=== PATIENT | female | born 1935 | race Caucasian/White ===

== ENCOUNTER 2018-04-23 09:50 | Inpatient (IN) | payer MEDICARE, OTHER ==
[~2018-04-23] VITALS: Ht 162.6 cm; Wt 63.6 kg
[~2018-04-23 09:50] MED LIST: CARV3.122 PO; LISI2.5T2 PO; LORA1TAB PO; MELA3TAB PO; MULT1TAB74 PO; NITR0.4T51 SL; OMEG1CAP54 PO; SYN0.025T PO; TRAM50TA2 PO
[2018-04-23] MEDS ORDERED: aspirin 81mg tab.chew PO ONE (10:00)
[2018-04-23 10:27] LABS: BASOPHILS % (AUTO) 0.7 % (0-1); EOSINOPHILS # (AUTO) 0.1 X10'3 (0-0.9); EOSINOPHILS % (AUTO) 1.2 % (0-6); HEMATOCRIT 30.2 % (35.0-45.0); LYMPHOCYTES # (AUTO) 0.9 X10'3 (1.1-4.8); LYMPHOCYTES % (AUTO) 14.6 % (21-51); MEAN CORPUSCULAR HEMOGLOBIN 30.8 PG (27.0-31.0); MEAN CORPUSCULAR HGB CONC 33.2 % (33.0-36.5); MEAN CORPUSCULAR VOLUME 92.6 FL (78-98); MEAN PLATELET VOLUME 6.8 FL (7.4-10.4); MONOCYTES # (AUTO) 0.5 X10'3 (0-0.9); MONOCYTES % (AUTO) 8.4 % (2-12); NEUTROPHILS # (AUTO) 4.4 X10'3 (1.8-7.7); NEUTROPHILS % (AUTO) 75.1 % (42-75); PLATELET COUNT 415 X10'3 (140-440); RED BLOOD COUNT 3.26 X10'6 (4.20-5.60); RED CELL DISTRIBUTION WIDTH 14.8 % (11.5-14.5); WHITE BLOOD COUNT 5.9 X10'3 (4.5-11.0)
[2018-04-23 10:45] LABS: ALANINE AMINOTRANSFERASE 31 U/L (12-78); ALBUMIN 3.4 G/DL (3.4-5.0); ALKALINE PHOSPHATASE 91 IU/L (46-116); ANION GAP 5 (8-16); ASPARTATE AMINO TRANSFERASE 19 U/L (10-37); BILIRUBIN,TOTAL 0.5 MG/DL (0.1-1.0); BLOOD UREA NITROGEN 12 MG/DL (7-18); BUN/CREATININE RATIO 14.6 (6.6-38.0); CALCIUM 9.4 MG/DL (8.5-10.1); CHLORIDE 102 MMOL/L (99-107); CREATININE 0.82 MG/DL (0.40-0.90); GLUCOSE 112 MG/DL (70-104); POTASSIUM 4.6 MMOL/L (3.5-5.1); SODIUM 136 MMOL/L (135-145); TOTAL PROTEIN 6.8 G/DL (6.4-8.2); eGFR 67 ML/MIN
[2018-04-23 10:51] LABS: MAGNESIUM 2.2 MG/DL (1.5-2.4)
[2018-04-23 10:52] LABS: INR 1.1 INR; PARTIAL THROMBOPLASTIN TIME 31 SECONDS (22-32); PROTHROMBIN TIME 11.1 SECONDS (9.0-12.0)
[2018-04-23] MEDS ORDERED: furosemide 10 MG/1 ML 10ml inj IV ONE (11:15)
[2018-04-23] MEDS ORDERED: levoFLOXACIN-Levaquin 750MG/D5 150 ML IV ONE (11:15)
[2018-04-23] MEDS ORDERED: LORA1TAB PO (11:30)
[2018-04-23] MEDS ORDERED: LEVO75TA7 PO (11:30)
[2018-04-23] MEDS ORDERED: LISI-604 PO (11:30)
[2018-04-23] MEDS ORDERED: CARV-50 PO (11:30)
[2018-04-23] MEDS ORDERED: magnesium hydroxide 30ml (MOM) UD suspension PO PRN (12:50)
[2018-04-23] MEDS ORDERED: mag hydrox/Alum hydrox/simeth 30ml oral suspension PO PRN (12:50)
[2018-04-23] MEDS ORDERED: acetaminophen 325mg tablet PO PRN ×2 (12:50)
[2018-04-23] MEDS ORDERED: ondansetron/PF 4mg/2ml inj IV PRN (12:50)
[2018-04-23] MEDS ORDERED: magnesium 4gm in 100ml NS 100 ML IV PRN (12:50)
[2018-04-23] MEDS ORDERED: potassium Cl 40MEQ/NS 500ml 500 ML IV PRN ×2 (12:50)
[2018-04-23] MEDS ORDERED: magnesium Cl slow-release 64mg tablet PO PRN (12:50)
[2018-04-23] MEDS ORDERED: potassium Cl 20 mEq SR tablet PO PRN ×2 (12:50)
[2018-04-23] MEDS: HYDROcodone/acetaminophen 5mg/325mg tablet PO PRN ×2 (15:02→20:25)
[2018-04-23] MEDS ORDERED: nitroGLYCERIN 0.4mg SUBLingual tab SL PRN (15:20)
[2018-04-23] MEDS ORDERED: traMADol 50MG tablet PO PRN (15:20)
[2018-04-23] MEDS: furosemide 40mg/4ml inj IV SCH (20:24)
[2018-04-23] MEDS: carvedilol 6.25mg tablet PO SCH (20:24)
[2018-04-23 21:00] VITALS: BP 128/79
[2018-04-23] MEDS ORDERED: LORazepam 1 MG tablet PO SCH (21:00)
[2018-04-24 03:00] VITALS: BP 103/54
[2018-04-24 06:15] LABS: ALBUMIN 2.8 G/DL (3.4-5.0); ANION GAP 10 (8-16); BLOOD UREA NITROGEN 15 MG/DL (7-18); BUN/CREATININE RATIO 17.4 (6.6-38.0); CALCIUM 8.8 MG/DL (8.5-10.1); CHLORIDE 103 MMOL/L (99-107); CREATININE 0.86 MG/DL (0.40-0.90); GLUCOSE 89 MG/DL (70-104); POTASSIUM 3.5 MMOL/L (3.5-5.1); SODIUM 140 MMOL/L (135-145); TOTAL CARBON DIOXIDE 27.3 MMOL/L (24-32); eGFR 63 ML/MIN
[2018-04-24 06:22] LABS: BASOPHILS % (AUTO) 0.9 % (0-1); EOSINOPHILS # (AUTO) 0.1 X10'3 (0-0.9); EOSINOPHILS % (AUTO) 1.8 % (0-6); HEMATOCRIT 28.2 % (35.0-45.0); HEMOGLOBIN 9.5 g/dl (12.0-16.0); LYMPHOCYTES # (AUTO) 1.2 X10'3 (1.1-4.8); LYMPHOCYTES % (AUTO) 26.7 % (21-51); MEAN CORPUSCULAR HGB CONC 33.7 % (33.0-36.5); MEAN CORPUSCULAR VOLUME 91.9 FL (78-98); MEAN PLATELET VOLUME 7.2 FL (7.4-10.4); MONOCYTES # (AUTO) 0.7 X10'3 (0-0.9); MONOCYTES % (AUTO) 15.6 % (2-12); NEUTROPHILS # (AUTO) 2.4 X10'3 (1.8-7.7); PLATELET COUNT 347 X10'3 (140-440); RED BLOOD COUNT 3.07 X10'6 (4.20-5.60); RED CELL DISTRIBUTION WIDTH 14.4 % (11.5-14.5); WHITE BLOOD COUNT 4.4 X10'3 (4.5-11.0)
[2018-04-24 07:00] VITALS: BP 103/58
[2018-04-24] MEDS ORDERED: K and/or MAG REPLACEMENT MC SCH (08:00)
[2018-04-24] MEDS ORDERED: enoxaparin 40mg/0.4ml syringe SQ SCH (08:00)
[2018-04-24] MEDS ORDERED: lisinopril 5mg tablet PO SCH (08:00)
[2018-04-24] MEDS ORDERED: levoTHYROXINE 75mcg tablet PO SCH (08:00)
[2018-04-24] MEDS: carvedilol 6.25mg tablet PO SCH (08:19)
[2018-04-24] MEDS: furosemide 40mg/4ml inj IV SCH (09:25)
[2018-04-24] MEDS ORDERED: FURO20TA4 PO (09:53)
== END 2018-04-24 10:55 | disposition home health service (06) | DRG 291 ==
LOC: ER 09:51 → ED HOLD 12:46 → MED 3N 21:01
PROVIDERS: ADMIT Hospitalist; ATTEND Family Medicine
DX: I50.43 Acute on chronic combined systolic (congestive) and diastolic (congestive) heart failure (principal); J96.01 Acute respiratory failure with hypoxia; I42.9 Cardiomyopathy, unspecified; J44.1 Chronic obstructive pulmonary disease with (acute) exacerbation; D64.9 Anemia, unspecified; E03.9 Hypothyroidism, unspecified; I25.10 Atherosclerotic heart disease of native coronary artery without angina pectoris; M17.0 Bilateral primary osteoarthritis of knee; R19.7 Diarrhea, unspecified; I25.2 Old myocardial infarction; Z90.49 Acquired absence of other specified parts of digestive tract; Z95.1 Presence of aortocoronary bypass graft; Z95.810 Presence of automatic (implantable) cardiac defibrillator; Z79.890 Hormone replacement therapy; Z79.899 Other long term (current) drug therapy; Z82.5 Family history of asthma and other chronic lower respiratory diseases; Z82.3 Family history of stroke; Z82.41 Family history of sudden cardiac death; Z82.49 Family history of ischemic heart disease and other diseases of the circulatory system
CPT/HCPCS: 36415; 71045; 80048; 80053; 83605; 83735; 83880; 84145; 84484; 85025; 85610; 85730; 87040; 87070; 93005; 93306; 96365; 96375; 99285; G0378; J1940; J1956

== ENCOUNTER 2018-05-23 16:13 | Inpatient (IN) | payer MEDICARE, OTHER ==
[~2018-05-23] VITALS: Ht 165.1 cm; Wt 66.6 kg
[~2018-05-23 16:13] MED LIST changes: +CARV-50 PO; -CARV3.122 PO; +FURO20TA4 PO; +LEVO75TA7 PO; +LISI-604 PO; -LISI2.5T2 PO; -MELA3TAB PO; -MULT1TAB74 PO; -NITR0.4T51 SL; -OMEG1CAP54 PO; -SYN0.025T PO; -TRAM50TA2 PO
[2018-05-23 16:32] LABS: BASOPHILS % (AUTO) 0.5 % (0-1); EOSINOPHILS # (AUTO) 0.1 X10'3 (0-0.9); EOSINOPHILS % (AUTO) 1.6 % (0-6); HEMATOCRIT 26.8 % (35.0-45.0); HEMOGLOBIN 8.9 g/dl (12.0-16.0); LYMPHOCYTES # (AUTO) 1.1 X10'3 (1.1-4.8); LYMPHOCYTES % (AUTO) 25.5 % (21-51); MEAN CORPUSCULAR HGB CONC 33.4 % (33.0-36.5); MEAN CORPUSCULAR VOLUME 92.9 FL (78-98); MEAN PLATELET VOLUME 7.5 FL (7.4-10.4); MONOCYTES # (AUTO) 0.5 X10'3 (0-0.9); MONOCYTES % (AUTO) 11.8 % (2-12); NEUTROPHILS # (AUTO) 2.7 X10'3 (1.8-7.7); NEUTROPHILS % (AUTO) 60.6 % (42-75); PLATELET COUNT 308 X10'3 (140-440); RED BLOOD COUNT 2.89 X10'6 (4.20-5.60); RED CELL DISTRIBUTION WIDTH 15.9 % (11.5-14.5); WHITE BLOOD COUNT 4.4 X10'3 (4.5-11.0)
[2018-05-23 16:46] LABS: INR 1.2 INR
[2018-05-23 16:47] LABS: ALANINE AMINOTRANSFERASE 17 U/L (12-78); ALBUMIN 2.6 G/DL (3.4-5.0); ALBUMIN/GLOBULIN RATIO 0.9 (1.1-1.5); ALKALINE PHOSPHATASE 62 IU/L (46-116); ANION GAP 9 (8-16); ASPARTATE AMINO TRANSFERASE 13 U/L (10-37); BILIRUBIN,TOTAL 0.2 MG/DL (0.1-1.0); BLOOD UREA NITROGEN 15 MG/DL (7-18); BUN/CREATININE RATIO 19.2 (6.6-38.0); CALCIUM 7.9 MG/DL (8.5-10.1); CHLORIDE 107 MMOL/L (99-107); CREATININE 0.78 MG/DL (0.40-0.90); GLUCOSE 116 MG/DL (70-104); POTASSIUM 3.2 MMOL/L (3.5-5.1); SODIUM 139 MMOL/L (135-145); TOTAL CARBON DIOXIDE 23.5 MMOL/L (24-32); TOTAL PROTEIN 5.4 G/DL (6.4-8.2); eGFR 71 ML/MIN
[2018-05-23 16:54] LABS: MAGNESIUM 1.5 MG/DL (1.5-2.4)
[2018-05-23] MEDS ORDERED: magnesium Cl slow-release 64mg tablet PO PRN (17:10)
[2018-05-23] MEDS ORDERED: furosemide 10 MG/1 ML 10ml inj IV ONE (17:10)
[2018-05-23] MEDS ORDERED: magnesium hydroxide 30ml (MOM) UD suspension PO PRN (17:10)
[2018-05-23] MEDS ORDERED: potassium Cl 20 mEq SR tablet PO PRN (17:10)
[2018-05-23] MEDS ORDERED: potassium Cl 40MEQ/NS 500ml 500 ML IV PRN ×2 (17:10)
[2018-05-23] MEDS ORDERED: magnesium 4gm in 100ml NS 100 ML IV PRN (17:10)
[2018-05-23] MEDS ORDERED: acetaminophen 325mg tablet PO PRN (17:10)
[2018-05-23] MEDS ORDERED: mag hydrox/Alum hydrox/simeth 30ml oral suspension PO PRN (17:10)
[2018-05-23] MEDS ORDERED: ondansetron/PF 4mg/2ml inj IV PRN (17:10)
[2018-05-23] MEDS ORDERED: magnesium 2GM in 50ml NS 50 ML IV PRN (17:10)
[2018-05-23 17:52] LABS: OCCULT BLOOD STOOL NEGATIVE (Neg)
--- NOTE | 2018-05-23 17:57 | NUR ---
ECHO AT BEDSIDE
[2018-05-23] MEDS: furosemide 40mg/4ml inj IV SCH (20:00)
[2018-05-23] MEDS: carVEDilol 12.5mg tablet PO SCH (20:32)
[2018-05-23] MEDS: heparin, porcine 5000 units/ml vial SQ SCH (20:33)
[2018-05-24] VITALS (7 sets, daily range): BP systolic 93–117; BP diastolic 38–79
[2018-05-24] MEDS ORDERED: traMADol 50MG tablet PO ONE (00:40)
[2018-05-24] MEDS ORDERED: LORazepam 0.5 MG tablet PO ONE (00:45)
[2018-05-24 05:35] LABS: ALANINE AMINOTRANSFERASE 18 U/L (12-78); ALBUMIN 2.8 G/DL (3.4-5.0); ALBUMIN/GLOBULIN RATIO 0.9 (1.1-1.5); ALKALINE PHOSPHATASE 65 IU/L (46-116); ANION GAP 11 (8-16); ASPARTATE AMINO TRANSFERASE 14 U/L (10-37); BILIRUBIN,TOTAL 0.3 MG/DL (0.1-1.0); BLOOD UREA NITROGEN 16 MG/DL (7-18); BUN/CREATININE RATIO 19.3 (6.6-38.0); CALCIUM 9.1 MG/DL (8.5-10.1); CHLORIDE 103 MMOL/L (99-107); CREATININE 0.83 MG/DL (0.40-0.90); GLUCOSE 102 MG/DL (70-104); POTASSIUM 3.9 MMOL/L (3.5-5.1); SODIUM 139 MMOL/L (135-145); TOTAL CARBON DIOXIDE 25.4 MMOL/L (24-32); TOTAL PROTEIN 5.9 G/DL (6.4-8.2); eGFR 66 ML/MIN
[2018-05-24 05:38] LABS: MAGNESIUM 1.8 MG/DL (1.5-2.4)
[2018-05-24 05:46] LABS: BASOPHILS % (AUTO) 1.1 % (0-1); EOSINOPHILS # (AUTO) 0.1 X10'3 (0-0.9); EOSINOPHILS % (AUTO) 1.8 % (0-6); HEMATOCRIT 30.2 % (35.0-45.0); LYMPHOCYTES % (AUTO) 23.5 % (21-51); MEAN CORPUSCULAR HGB CONC 33.2 % (33.0-36.5); MEAN CORPUSCULAR VOLUME 93.4 FL (78-98); MEAN PLATELET VOLUME 8.1 FL (7.4-10.4); MONOCYTES # (AUTO) 0.5 X10'3 (0-0.9); MONOCYTES % (AUTO) 11.9 % (2-12); NEUTROPHILS # (AUTO) 2.7 X10'3 (1.8-7.7); NEUTROPHILS % (AUTO) 61.7 % (42-75); PLATELET COUNT 300 X10'3 (140-440); RED BLOOD COUNT 3.23 X10'6 (4.20-5.60); RED CELL DISTRIBUTION WIDTH 15.4 % (11.5-14.5); WHITE BLOOD COUNT 4.4 X10'3 (4.5-11.0)
--- NOTE | 2018-05-24 06:00 | NUR ---
Patient in room MED 313. I have received report from CARIDAD Berger and had the opportunity to ask questions and assume patient care.
--- NOTE | 2018-05-24 06:27 | NUR ---
Problems reprioritized. Patient report given, questions answered & plan of care reviewed with Brunilda MCLEAN.
[2018-05-24] MEDS: levoTHYROXINE 75mcg tablet PO SCH (07:36)
[2018-05-24] MEDS: aspirin 81mg tab.chew PO SCH (07:37)
[2018-05-24] MEDS: furosemide 40mg/4ml inj IV SCH (07:37)
[2018-05-24] MEDS: carVEDilol 12.5mg tablet PO SCH ×2 (07:37→20:00)
[2018-05-24] MEDS: heparin, porcine 5000 units/ml vial SQ SCH ×2 (07:38→20:19)
[2018-05-24] MEDS: K and/or MAG REPLACEMENT MC SCH (07:52)
[2018-05-24] MEDS ORDERED: lisinopril 5mg tablet PO SCH (08:00)
[2018-05-24] MEDS: traMADol 50MG tablet PO SCH ×2 (09:51→20:19)
[2018-05-24] MEDS: LORazepam 0.5 MG tablet PO PRN (11:46)
[2018-05-24] MEDS: CefTRIAXone/D5W-Rocephin 1gm 50 ML IV SCH (14:56)
[2018-05-24] MEDS: azithromycin/NS 500mg/250ml 250 ML IV SCH (15:35)
--- NOTE | 2018-05-24 16:04 | NUR ---
Attempted to place a new IV in the Left arm for patient. Patient refusing until she may have another dose of Ativan. Will try again after administering Ativan.
--- NOTE | 2018-05-24 17:55 | NUR ---
[place] documentation: I have reviewed and agree with all interventions, assessments performed and documented by Lindsey MCLEAN. [place] Medication Administration: For this medication-pass time frame, all medication were reviewed, dispensed, administered and documented per hospital policy by Lindsey MCLEAN.
--- NOTE | 2018-05-24 18:22 | NUR ---
Problems reprioritized. Patient report given, questions answered & plan of care reviewed with Ab MCLEAN.
--- NOTE | 2018-05-24 18:24 | NUR ---
Problems reprioritized. Patient report given, questions answered & plan of care reviewed with CARIDAD Berger.
[2018-05-24] MEDS: furosemide 20 MG/2 ML vial IV SCH (20:19)
[2018-05-24] MEDS ORDERED: LORazepam 1 MG tablet PO SCH (21:00)
[2018-05-25] VITALS (10 sets, daily range): BP systolic 84–115; BP diastolic 48–74
--- NOTE | 2018-05-25 00:20 | NUR ---
Patient in room MED 313. I have received report from Aj Berger and had the opportunity to ask questions and assume patient care.
[2018-05-25] MEDS ORDERED: LORazepam 0.5 MG tablet PO SCH (00:36)
[2018-05-25] MEDS: LORazepam 0.5 MG tablet PO PRN ×3 (00:39→13:35)
--- NOTE | 2018-05-25 01:00 | NUR ---
I agree with CARIDAD Berger's physical assessment.
[2018-05-25 05:57] LABS: BASOPHILS % (AUTO) 0.8 % (0-1); EOSINOPHILS # (AUTO) 0.1 X10'3 (0-0.9); EOSINOPHILS % (AUTO) 2.6 % (0-6); HEMATOCRIT 30.6 % (35.0-45.0); HEMOGLOBIN 10.3 g/dl (12.0-16.0); LYMPHOCYTES # (AUTO) 1.5 X10'3 (1.1-4.8); MEAN CORPUSCULAR HEMOGLOBIN 31.4 PG (27.0-31.0); MEAN CORPUSCULAR HGB CONC 33.5 % (33.0-36.5); MEAN CORPUSCULAR VOLUME 93.6 FL (78-98); MEAN PLATELET VOLUME 7.7 FL (7.4-10.4); MONOCYTES # (AUTO) 0.5 X10'3 (0-0.9); MONOCYTES % (AUTO) 10.6 % (2-12); NEUTROPHILS # (AUTO) 2.4 X10'3 (1.8-7.7); PLATELET COUNT 336 X10'3 (140-440); RED BLOOD COUNT 3.27 X10'6 (4.20-5.60); RED CELL DISTRIBUTION WIDTH 15.8 % (11.5-14.5); WHITE BLOOD COUNT 4.6 X10'3 (4.5-11.0)
[2018-05-25 06:13] LABS: ALANINE AMINOTRANSFERASE 19 U/L (12-78); ALBUMIN 2.9 G/DL (3.4-5.0); ALBUMIN/GLOBULIN RATIO 0.9 (1.1-1.5); ALKALINE PHOSPHATASE 63 IU/L (46-116); ANION GAP 8 (8-16); ASPARTATE AMINO TRANSFERASE 13 U/L (10-37); BILIRUBIN,TOTAL 0.3 MG/DL (0.1-1.0); BLOOD UREA NITROGEN 15 MG/DL (7-18); BUN/CREATININE RATIO 17.2 (6.6-38.0); CALCIUM 9.1 MG/DL (8.5-10.1); CHLORIDE 102 MMOL/L (99-107); CREATININE 0.87 MG/DL (0.40-0.90); GLUCOSE 92 MG/DL (70-104); MAGNESIUM 1.8 MG/DL (1.5-2.4); POTASSIUM 3.7 MMOL/L (3.5-5.1); SODIUM 139 MMOL/L (135-145); TOTAL CARBON DIOXIDE 29.1 MMOL/L (24-32); TOTAL PROTEIN 6.1 G/DL (6.4-8.2); eGFR 62 ML/MIN
--- NOTE | 2018-05-25 06:49 | NUR ---
Problems reprioritized. Patient report given, questions answered & plan of care reviewed with CARIDAD Sandoval.
[2018-05-25] MEDS: levoTHYROXINE 75mcg tablet PO SCH (07:33)
[2018-05-25] MEDS: furosemide 20 MG/2 ML vial IV SCH ×2 (07:33→20:00)
[2018-05-25] MEDS: CefTRIAXone/D5W-Rocephin 1gm 50 ML IV SCH (07:36)
[2018-05-25] MEDS: carVEDilol 12.5mg tablet PO SCH ×2 (07:36→20:00)
[2018-05-25] MEDS: traMADol 50MG tablet PO SCH ×2 (07:37→19:50)
[2018-05-25] MEDS: heparin, porcine 5000 units/ml vial SQ SCH (07:40)
[2018-05-25] MEDS: aspirin 81mg tab.chew PO SCH (07:45)
[2018-05-25] MEDS: K and/or MAG REPLACEMENT MC SCH (08:00)
[2018-05-25] MEDS ORDERED: lisinopril 2.5mg tablet PO SCH (08:00)
[2018-05-25] MEDS: azithromycin/NS 500mg/250ml 250 ML IV SCH (08:45)
[2018-05-25] MEDS: spironolactone 25 MG tablet PO SCH (09:25)
[2018-05-25] MEDS: lisinopril 2.5mg tablet PO SCH (09:25)
--- NOTE | 2018-05-25 10:14 | NUR ---
Patient in room PCU 3015. I have received report from CARIDAD RUSSELL and had the opportunity to ask questions and assume patient care.
--- NOTE | 2018-05-25 11:15 | NUR ---
DR. GALVEZ NOTIFIED OF LISINOPRIL AND SPIRONOLACTONE HELD FOR BP 87/48.
--- NOTE | 2018-05-25 18:17 | NUR ---
Problems reprioritized. Patient report given, questions answered & plan of care reviewed with [place] RN.
--- NOTE | 2018-05-25 18:26 | NUR ---
Patient in room PCU 3028. I have received report from Jaime MCLEAN and had the opportunity to ask questions and assume patient care.
[2018-05-25] MEDS: apixaban 5mg tablet PO SCH (19:50)
[2018-05-26] MEDS: LORazepam 0.5 MG tablet PO PRN (01:51)
[2018-05-26 03:00] VITALS: BP 101/64
--- NOTE | 2018-05-26 03:02 | NUR ---
Spoke with Dr. Cohen regarding patient's a-fib with HR of 111 to 115, and BP of 101/64. I asked if we should give the Coreg 12.5mg which we had withheld earlier due to BP less than 100. Due to the patient's borderline BP, Dr. Cohen does not want the Coreg given at this time. No new orders at this time.
[2018-05-26 04:44] LABS: BASOPHILS # (AUTO) 0.1 X10'3 (0-0.2); BASOPHILS % (AUTO) 1.2 % (0-1); EOSINOPHILS # (AUTO) 0.1 X10'3 (0-0.9); EOSINOPHILS % (AUTO) 2.2 % (0-6); HEMATOCRIT 28.7 % (35.0-45.0); HEMOGLOBIN 9.5 g/dl (12.0-16.0); LYMPHOCYTES # (AUTO) 1.5 X10'3 (1.1-4.8); MEAN CORPUSCULAR HEMOGLOBIN 31.1 PG (27.0-31.0); MEAN CORPUSCULAR HGB CONC 33.3 % (33.0-36.5); MEAN CORPUSCULAR VOLUME 93.4 FL (78-98); MEAN PLATELET VOLUME 7.7 FL (7.4-10.4); MONOCYTES # (AUTO) 0.6 X10'3 (0-0.9); MONOCYTES % (AUTO) 13.1 % (2-12); NEUTROPHILS # (AUTO) 2.5 X10'3 (1.8-7.7); NEUTROPHILS % (AUTO) 52.5 % (42-75); PLATELET COUNT 331 X10'3 (140-440); RED BLOOD COUNT 3.07 X10'6 (4.20-5.60); RED CELL DISTRIBUTION WIDTH 15.9 % (11.5-14.5); WHITE BLOOD COUNT 4.7 X10'3 (4.5-11.0)
[2018-05-26 05:04] LABS: ALANINE AMINOTRANSFERASE 19 U/L (12-78); ALBUMIN 2.8 G/DL (3.4-5.0); ALBUMIN/GLOBULIN RATIO 0.9 (1.1-1.5); ALKALINE PHOSPHATASE 57 IU/L (46-116); ANION GAP 8 (8-16); ASPARTATE AMINO TRANSFERASE 14 U/L (10-37); BILIRUBIN,TOTAL 0.3 MG/DL (0.1-1.0); BLOOD UREA NITROGEN 19 MG/DL (7-18); BUN/CREATININE RATIO 21.3 (6.6-38.0); CALCIUM 8.8 MG/DL (8.5-10.1); CHLORIDE 102 MMOL/L (99-107); CREATININE 0.89 MG/DL (0.40-0.90); GLUCOSE 90 MG/DL (70-104); MAGNESIUM 1.7 MG/DL (1.5-2.4); POTASSIUM 3.4 MMOL/L (3.5-5.1); SODIUM 138 MMOL/L (135-145); TOTAL CARBON DIOXIDE 28.4 MMOL/L (24-32); TOTAL PROTEIN 5.8 G/DL (6.4-8.2); eGFR 61 ML/MIN
--- NOTE | 2018-05-26 06:15 | NUR ---
Patient in room PCU 3028. I have received report from CARIDAD WOOD and had the opportunity to ask questions and assume patient care.
--- NOTE | 2018-05-26 06:37 | NUR ---
Problems reprioritized. Patient report given, questions answered & plan of care reviewed with armond garvey. patient asleep in no distress
--- NOTE | 2018-05-26 06:38 | NUR ---
genny documentation: I have reviewed and agree with all interventions, assessments performed and documented by antoni garvey.
--- NOTE | 2018-05-26 06:38 | NUR ---
[facility] Medication Administration: For this medication-pass time frame, all medication were reviewed, dispensed, administered and documented per hospital policy by antoni garvey.
[2018-05-26 07:00] VITALS: BP 114/82
[2018-05-26] MEDS: K and/or MAG REPLACEMENT MC SCH (08:00)
[2018-05-26] MEDS: azithromycin/NS 500mg/250ml 250 ML IV SCH ×2 (08:00→09:06)
[2018-05-26] MEDS: CefTRIAXone/D5W-Rocephin 1gm 50 ML IV SCH ×2 (08:00→09:05)
[2018-05-26] MEDS: traMADol 50MG tablet PO SCH (09:03)
[2018-05-26] MEDS: apixaban 5mg tablet PO SCH (09:04)
[2018-05-26] MEDS: spironolactone 25 MG tablet PO SCH (09:04)
[2018-05-26] MEDS: carVEDilol 12.5mg tablet PO SCH (09:04)
[2018-05-26] MEDS: aspirin 81mg tab.chew PO SCH (09:04)
[2018-05-26] MEDS: potassium Cl 20 mEq SR tablet PO PRN ×2 (09:05→14:13)
[2018-05-26] MEDS: lisinopril 2.5mg tablet PO SCH (09:05)
[2018-05-26] MEDS: furosemide 20 MG/2 ML vial IV SCH (09:07)
[2018-05-26] MEDS: levoTHYROXINE 75mcg tablet PO SCH (09:08)
--- NOTE | 2018-05-26 11:30 | NUR ---
DR GALVEZ PAGED REGARDING IV SITE AND MORNING ANTIBIOTICS. PAGER ID: [id number] MESSAGE: [id number] BLANK-IV CAME OUT BEFORE MORNING ANTIBIOTICS COULD BE GIVEN (ROCEPHIN AND AZITHROMYCIN). ATTEMPTED RESTART X 2 UNSUCCESSFUL. PT STATES POSSIBLE DC HOME TODAY? DO YOU WANT ANTIBIOTICS GIVEN PO? THANK YOU, CARIDAD LEDESMA (EXT [phone])
--- NOTE | 2018-05-26 11:58 | NUR ---
O2 Sat at rest on room air:_86__% If below 89%: Recovery O2 Sat at rest on _2__LPM:_98_%:___% via___NASAL CANNULA__(mask/nasal cannula, etc..) No further documentation is necessary. If O2 Sat did not drop below 89% on room air,ambulate patient on room air. O2 Sat while ambulating on room air:___% Recovery O2 Sat while ambulating on ___LPM:___% No further documentation is necessary. If patient does not drop below 89% while ambulating, he/she does not qualify for home O2.
[2018-05-26 12:00] VITALS: BP 102/64
[2018-05-26] MEDS ORDERED: azithromycin 250mg tablet PO ONE (13:10)
[2018-05-26] MEDS ORDERED: cefpodoxime proxetil 100mg tablet PO SCH (13:30)
--- NOTE | 2018-05-26 15:40 | NUR ---
DRESSED AND READY TO TRANSFER TO [facility]. TELE PACK REMOVED. [facility] HERE AND PAPERWORK GIVEN TO TRANSPORTERS.
--- NOTE | 2018-05-26 15:58 | NUR ---
REPORT CALLED TO NURSE, SONIA AT [facility]. PATIENT IS EN ROUTE TO THE FACILITY WITH [facility].
== END 2018-05-26 15:27 | DRG 280 ==
LOC: ER 16:13 → ED HOLD 17:10 → MED 3N 05-24 00:20 → PCU 3S 05-25 00:30
PROVIDERS: ADMIT Internal Medicine; ATTEND Family Medicine
DX: I11.0 Hypertensive heart disease with heart failure (principal); I21.A1 Myocardial infarction type 2; J96.01 Acute respiratory failure with hypoxia; J18.1 Lobar pneumonia, unspecified organism; I50.23 Acute on chronic systolic (congestive) heart failure; I48.91 Unspecified atrial fibrillation; D64.9 Anemia, unspecified; I95.9 Hypotension, unspecified; E03.9 Hypothyroidism, unspecified; F41.9 Anxiety disorder, unspecified; I07.1 Rheumatic tricuspid insufficiency; I25.10 Atherosclerotic heart disease of native coronary artery without angina pectoris; I25.2 Old myocardial infarction; Z90.49 Acquired absence of other specified parts of digestive tract; Z95.0 Presence of cardiac pacemaker; Z95.1 Presence of aortocoronary bypass graft; Z79.899 Other long term (current) drug therapy; Z79.01 Long term (current) use of anticoagulants; Z82.3 Family history of stroke; Z82.41 Family history of sudden cardiac death; Z82.49 Family history of ischemic heart disease and other diseases of the circulatory system; Z82.5 Family history of asthma and other chronic lower respiratory diseases
CPT/HCPCS: 36415; 71045; 80053; 82272; 83735; 83880; 84443; 84484; 85025; 85610; 87070; 93005; 93306; 97162; 97530; 99285; G0378; J0456; J0696; J1644; J1940; J3480

== ENCOUNTER 2018-08-02 15:16 | Inpatient (IN) | payer MEDICARE, OTHER | END 2018-08-03 11:30 | disposition E | LOC: ER 15:16 → ICU 2S 08-03 07:05 → ED HOLD 21:57 | DX: I21.A1 Myocardial infarction type 2 (principal); I50.23 Acute on chronic systolic (congestive) heart failure; R57.0 Cardiogenic shock; E87.1 Hypo-osmolality and hyponatremia; N17.9 Acute kidney failure, unspecified; Z95.810 Presence of automatic (implantable) cardiac defibrillator; Z95.0 Presence of cardiac pacemaker; I48.91 Unspecified atrial fibrillation; R79.89 Other specified abnormal findings of blood chemistry; E87.6 Hypokalemia ==